=== PATIENT | female | born 1965 | race Caucasian/White ===

== ENCOUNTER 2017-11-05 19:51 | Emergency (ER) | payer OTHER ==
[~2017-11-05] VITALS: Ht 170.2 cm; Wt 90.7 kg
[2017-11-05] MEDS ORDERED: SYNTHROID100 MCG PO (20:37)
[2017-11-05] MEDS ORDERED: DILTIAZEM HCL30 M1 PO (20:38)
--- NOTE | 2017-11-05 21:48 | CT SCAN REPORT ---
EXAMINATION: CT HEAD WITHOUT CONTRAST CLINICAL INFORMATION: Headache with hypertension. Rule out subarachnoid hemorrhage. COMPARISON: None TECHNIQUE: Contiguous axial imaging was performed from the skull base to vertex without intravenous administration of contrast. DLP: 605 mGy-cm FINDINGS: There is no evidence of acute intracranial hemorrhage or territorial infarction. No abnormal mass effect or midline shift is seen. Bazan to white matter differentiation is well preserved. No extra-axial fluid collections are identified. The ventricles are normal in size. There is no abnormal attenuation within the brain parenchyma. The osseous structures and soft tissues are normal. The mastoid air cells and visualized portions of the paranasal sinuses are well aerated. IMPRESSION: No acute intracranial process seen.
[2017-11-05 22:02] LABS: ABSOLUTE BASOPHIL COUNT 0 /CUMM (0.0-0.2); ABSOLUTE EOSINOPHIL COUNT 0.1 /CUMM (0.0-0.7); ABSOLUTE GRANULOCYTE CT 5.4 /CUMM (1.4-6.5); ABSOLUTE LYMPH COUNT 2.5 /CUMM (1.2-3.4); ABSOLUTE MONOCYTE COUNT 0.7 /CUMM (0.10-0.60); BASOPHIL % 0.3 % (0.0-2.0); EOSINOPHIL % 1.1 % (0-5); GRANULOCYTE % 61.7 % (42.2-75.2); HEMATOCRIT 40.5 % (37-47); MEAN CORPUSCULAR HGB 29.7 PG (27.0-31.0); MEAN CORPUSCULAR HGB CONC 34.1 G/DL (33.0-37.0); MEAN CORPUSCULAR VOLUME 87.1 FL (81.0-99.0); MEAN PLATELET VOLUME 7.5 FL (7.4-10.4); PLATELET COUNT 347 /CUMM (130-400); RBC DISTRIBUTION WIDTH 12.8 % (11.5-14.5); RED BLOOD CELL CT 4.65 /CUMM (4.20-5.40); WHITE BLOOD CELL COUNT 8.7 /CUMM (4.8-10.8)
--- NOTE | 2017-11-05 23:01 | ED GENERAL ADULT ---
History of Present Illness General Chief Complaint: General Adult Stated Complaint: "HIGH BP" PER PT Source: patient Exam Limitations: no limitations Vital Signs & Intake/Output Vital Signs & Intake/Output Vital Signs Date Time Temp Pulse Resp B/P B/P Pulse O2 O2 Flow FiO2 Mean Ox Delivery Rate 11/05 2316 69 18 178/84 99 Room Air 11/05 2251 63 18 178/82 99 Room Air 11/05 2235 192/95 11/05 2227 98.0 70 18 191/95 98 Room Air 11/05 2214 78 190/92 11/05 2205 85 190/92 11/05 2205 85 18 190/92 99 Room Air 11/05 2124 Room Air 11/05 2118 94 19 208/96 98 Room Air 11/05 2000 97.5 85 20 188/121 98 Room Air ED Intake and Output 11/06 0000 11/05 1200 Intake Total Output Total Balance Patient 200 lb Weight Allergies Coded Allergies: azithromycin (Intermediate, ABDOMINAL CRAMPING 11/05/17) Reconcile Medications Cephalexin (Keflex) 500 MG CAPSULE 1 CAP PO BID UTI Diltiazem HCl 30 MG TABLET 1 TAB PO Q4H PRN BP (Reported) Levothyroxine Sodium (Synthroid) 100 MCG TABLET 1 TAB PO DAILY THYROID ( Reported) Lisinopril (Prinivil) 5 MG TABLET 1 TAB PO DAILY HTN Naproxen (Naprosyn) 500 MG TABLET 1 TAB PO BID PRN pain Triage Note: PT SENT IN FROM [facility] FOR HIGH BP. PT STATES SHE TAKES FARIDA DILTAZEM 30MG ONLY WHEN HER BP IS OVER 160. PT REPORTS HAVING A HEADACHE FOR OVER 24 HOURS. Triage Nurses Notes Reviewed? yes Onset: Gradual Duration: day(s): Timing: constant HPI: 52 y/o female with a h/o HTN and hypothyroid presenting with elevated BP and URIAS since yesterday. Pt resides in [place] and is currently in the area visiting family for another 3 days, and will then be returning to [place]. States that yesterday she began to develop a dull frontal URIAS, which she usually gets when her BP is high. Is prescribed 30mg diltiazem, which she takes prn only when her SBP is over 160. States she took a dose last night and 4 doses today without relief from her URIAS or imporvement in her BP. Has not tried any OTC pain meds for relief. Denies visual changes, CP, SOB. No recent head trauma. (Susy Rokc) Past History Travel History Traveled to [place] past 21 day No Medical History Any Pertinent Medical History? 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 No (Susy Rock) Review of Systems Review of Systems Constitutional: Reports: no symptoms. EENTM: Reports: no symptoms. Respiratory: Reports: no symptoms. Cardiovascular: Reports: no symptoms. GI: Reports: no symptoms. Genitourinary: Reports: no symptoms. Musculoskeletal: Reports: no symptoms. Skin: Reports: no symptoms. Neurological/Psychological: Reports: see HPI. Hematologic/Endocrine: Reports: no symptoms. Immunologic/Allergic: Reports: no symptoms. All Other Systems: Reviewed and Negative (Susy Rock) Physical Exam Physical Exam General Appearance: well developed/nourished, no apparent distress, alert, awake Comments: Gen.: Well-nourished, well-developed, no acute distress. Head: Normocephalic, atraumatic. No temporal TTP. Eyes: Normal inspection bilaterally, PERRLA, EOMs intact Ears: Normal inspection bilaterally Nose: Normal inspection Neck: Normal inspection Lungs: clear to auscultation bilaterally, normnal breath sounds Heart: regular rate and rhythm Abdomen: soft and non-tender Extremities: Normal inspection Neurologic: alert and oriented x3, steady gait, CN's 2-12 intact, sensation intact, motor strength 5/5 in all extremities, reflexes 2+, cerebellar function intact Skin: warm and dry Psychiatric: Normal mood and affect, no apparent delusions or hallucinations, behavior appropriate Core Measures ACS in differential dx? No CVA/TIA Diagnosis: No Sepsis Present: No Sepsis Focused Exam Completed? No (Susy Rock) Progress Differential Diagnoses I considered the following diagnoses in my evaluation of the patient: [ hypertensive URIAS vs hypertensive urgency vs hypertensive emergency vs SAH, low concern for GCA] Plan of Care: Orders Procedure Date/time Status Add-on Test (ER Only) 11/05 2301 Active CULTURE,URINE 11/05 2209 Active URINALYSIS 11/05 2125 Complete TROPONIN LEVEL 11/05 2125 Complete MAGNESIUM 11/05 2125 Complete COMPREHENSIVE METABOLIC PANEL 11/05 2125 Complete CBC WITHOUT DIFFERENTIAL 11/05 2125 Complete EKG 11/05 2125 Active Current Medications Sig/Crow Start time Last Medication Dose Stop Time Status Admin Diltiazem HCl 30 MG ONCE ONE 11/05 2129 CAN (Cardizem) 11/05 2130 Hydralazine HCl 10 MG ONCE ONE 11/05 2129 CAN (Apresoline) 11/05 2130 Laboratory Tests 11/05/172209: Urine Color YEL, Urine Clarity CLEAR, Urine pH 6.0, Ur Specific [place] 1.020, Urine Protein NEG, Urine Ketones NEG, Urine Nitrite POS H, Urine Bilirubin NEG, Urine Urobilinogen 0.2, Ur Leukocyte Esterase SMALL H, Ur Microscopic SEDIMENT EXAMINED, Urine RBC 1-3, Urine WBC 5-10 H, Ur Epithelial Cells FEW, Urine Bacteria MANY H, Urine Hemoglobin SMALL H, Urine Glucose NEG 11/05/172149: Anion Gap 9, Estimated GFR > 60, BUN/Creatinine Ratio 20.0, Glucose 106 H, Calcium 9.7, Magnesium 1.8, Total Bilirubin 0.5, AST 19, ALT 22, Alkaline Phosphatase 76, Troponin I < 0.01, Total Protein 7.9, Albumin 4.8, Globulin 3.1, Albumin/Globulin Ratio 1.5, CBC w Diff NO MAN DIFF REQ, RBC 4.65, MCV 87.1, MCH 29.7, MCHC 34.1, RDW 12.8, MPV 7.5, Gran % 61.7, Lymphocytes % 28.8, Monocytes % 8.1, Eosinophils % 1.1, Basophils % 0.3, Absolute Granulocytes 5.4, Absolute Lymphocytes 2.5, Absolute Monocytes 0.7 H, Absolute Eosinophils 0.1, Absolute Basophils 0 Microbiology 11/05 2209 URINE ROUT: Urine Culture - RECD EKG is non-ischemic, trop neg (not repeated as pt has had no CP) Head CT unremarkable Given po and IV labetalol with imporvement in BP to 170's/80's (from low 200's/ 90's). Pt reports resolution of her URIAS after her BP was lowered. Pt counseled that she should be on a low dose anti-HTN med, rather than prn, to keep her BP at a steady level and prevent future URIAS's and elevated BP's. Pt started on low dose lisinopril for now, and will f/u with her PMD once she returns home for re- evaluation of her BP regimen. Also given rx naproxen prn for RUIAS's. UA consistent with UTI, given single dose ceftriaxone in ER and given rx keflex, and urine cx sent. Pt given strict return precautions. Initial ED EKG: normal sinus rhythm, no ST T wave changes (Susy Rock) Departure Departure Disposition: HOME OR SELF CARE Condition: Stable Clinical Impression Primary Impression: Hypertension Secondary Impressions: Headache Referrals: Unknown (PCP/Family) Additional Instructions: Begin taking lisinopril daily for your blood pressure. Take Keflex as prescribed for UTI. Use naproxen as needed for headaches or pain. Follow-up with your primary care provider once he returns home. Return to the emergency department for any new or worsening symptoms. Departure Forms: Customer Survey General Discharge Information Prescriptions: Current Visit Scripts Cephalexin (Keflex) 1 CAP PO BID #20 CAP Lisinopril (Prinivil) 1 TAB PO DAILY #30 TAB Naproxen (Naprosyn) 1 TAB PO BID PRN pain #60 TAB (Susy Rock) PA/DEVULCANIZER OPERATOR Co-Sign Statement Statement: ED Attending supervision documentation- [] I saw and evaluated the patient. I have also reviewed all the pertinent lab results and diagnostic results. I agree with the findings and the plan of care as documented in the PA's/DEVULCANIZER OPERATOR's documentation. [x] I have reviewed the ED Record and agree with the PA's/DEVULCANIZER OPERATOR's documentation. [] Additions or exceptions (if any) to the PAs/DEVULCANIZER OPERATOR's note and plan are summarized below: [] (Carol BENZ,Omar Delarosa) Critical Care Note Critical Care Note Critical Care Time: non-applicable (Susy Rock)
[2017-11-05] MEDS ORDERED: PRINIVIL5 M1 PO (23:10)
[2017-11-05] MEDS ORDERED: KEFLEX500 M1 PO (23:10)
[2017-11-05] MEDS ORDERED: NAPROSYN500 M1 PO (23:10)
[2017-11-05 23:16] VITALS: BP 178/84
== END 2017-11-05 23:19 ==
LOC: ERH 19:51
PROVIDERS: Physician Assistant
DX: I10 Essential (primary) hypertension (principal); N39.0 Urinary tract infection, site not specified; R51 Headache; E03.9 Hypothyroidism, unspecified
CPT/HCPCS: 81001; 87086; 93005; 93010; 96374; 96375; J0696; J1885